=== PATIENT | female | born 1945 | race Two or more races ===

== ENCOUNTER 2022-12-26 08:38 | Outpatient (CLI) | payer OTHER | END 2022-12-26 08:52 | disposition home or self-care (01) | LOC: TOM 08:38 | PROVIDERS: ATTEND Internal Medicine Gastroenterology | DX: R19.5 Other fecal abnormalities (principal); K56.609 Unspecified intestinal obstruction, unspecified as to partial versus complete obstruction; R63.5 Abnormal weight gain ==

== ENCOUNTER → 2023-01-02 | Outpatient (CLI) | payer OTHER | END | disposition home or self-care (01) | LOC: RAD 09:18 | PROVIDERS: ATTEND Internal Medicine Gastroenterology | DX: R13.10 Dysphagia, unspecified (principal); K21.9 Gastro-esophageal reflux disease without esophagitis ==